=== PATIENT | male | born 2000 | race African-American/Black ===

== ENCOUNTER 2022-08-17 11:10 | Emergency (ER) | payer SELFPAY ==
[2022-08-17] MEDS ORDERED: Loperamide HCl 2 MG CAP ONE ×2 (12:16→12:18)
[2022-08-17] MEDS ORDERED: Ondansetron PF 4 MG/2 ML Vial ONE ×2 (12:16→13:28)
[2022-08-17] MEDS ORDERED: Sodium Chloride 0.9% 1,000 ML ONE ×2 (12:16→13:50)
[2022-08-17 13:11] LABS: Hemoglobin 13.3 g/dL (14.0-18.0); Mean Corpuscular HGB CONC 30.6 g/dL (32.0-36.0); Mean Corpuscular Hemoglobin 21.8 pg (27.0-31.0); Mean Corpuscular Volume 71.3 fl (78.0-98.0); Mean Platelet Volume 6.9 fL (7.4-10.4); Platelet Count 238 10x3/uL (130-400); RBC Distribution Width 14.1 % (11.5-14.5); Red Blood Cell (RBC) Count 6.07 mill/uL (4.70-6.10); White Blood Cell (WBC) Count 13.4 10x3/uL (4.8-10.8)
[2022-08-17 13:22] LABS: ALT (SGPT) 39 U/L (8-55); AST (SGOT) 26 U/L (5-34); Alkaline Phosphatase 48 U/L (40-110); Anion Gap 14 mmol/L (10-20); BUN (Urea Nitrogen) 9 mg/dL (8.9-20.6); Calc. Creatinine Clearance 0 mL/min (70-130); Carbon Dioxide 20 mmol/L (22-29); Chloride 103 mmol/L (98-107); Estimated GFR 101; Globulin 2.9 g/dL (2.4-3.5); Glucose 92 mg/dL (70-105); Lipase 4 U/L (8-78); Potassium 3.4 mmol/L (3.5-5.1); Protein, Total 6.9 g/dL (6.0-8.3); Sodium 134 mmol/L (136-145)
[2022-08-17 13:24] LABS: #Basophils 0.1 thou/uL (0.0-0.2); #Lymphocytes 1.6 thou/uL (1.20-3.40); #Monocytes 1.3 thou/uL (0.11-0.59); #Neutrophils 10.4 thou/uL (1.40-6.50); %Basophils 1.1 % (0.0-1.0); %Eosinophils 0.1 % (0.0-10.0); %Lymphocytes 11.7 % (21.0-51.0); %Monocytes 9.4 % (0.0-10.0); %Neutrophils 77.7 % (42.0-75.0)
[2022-08-17] MEDS ORDERED: Promethazine HCl 25 MG/ML VIAL ONE ×2 (13:50→13:56)
== END 2022-08-17 15:32 | disposition home or self-care (01) ==
LOC: NAV ERS 11:10
DX: K52.9 Noninfective gastroenteritis and colitis, unspecified (principal); D72.829 Elevated white blood cell count, unspecified; F17.200 Nicotine dependence, unspecified, uncomplicated
CPT/HCPCS: 80053; 83690; 85025; 87804; 96361; 96374; 96375; 96376; J2405; J2550; J7050